=== PATIENT | male | born 1955 | race Caucasian/White ===

== ENCOUNTER 2021-02-11 09:55 | Emergency (ER) | payer MEDICARE, OTHER ==
--- NOTE | 2021-02-11 10:14 | ED Physician Documentation ---
PD HPI LOWER EXT INJURY - Stated complaint Stated Complaint: L FOOT BRUISING - Chief complaint Chief Complaint: Trauma Ext - History obtained from History obtained from: Patient - History of Present Illness PD HPI LOW EXT INJURY LOCATION: Left, Ankle Type of injury: Twist (he felt a pop feeling in ankle when he twisted foot in bed a week ago, and was some sore for day or two. Now better. But now having couple days of swelling and bruising medially below ankle. No other bruising/bleeding noted.). No: Fall Where injury occurred: Home Timing - onset: How many weeks ago (1) Timing - details: Abrupt onset (for the feeling of mild pain in ankle a week ago, but gradual onset dark purple bruising the past couple days.) Worsened by: Palpating Associated symptoms: Swelling, Discolored (purple to green bruising medial ankle.). No: Weakness, Numbness Contributing factors: No: Anticoagulated Similar symptoms before: Has not had sx before Recently seen: Not recently seen Review of Systems Constitutional: denies: Fever, Chills Nose: denies: Rhinorrhea / runny nose, Congestion Throat: denies: Sore throat Respiratory: denies: Cough Skin: denies: Rash, Lesions, Abrasion (s) Neurologic: denies: Focal weakness, Numbness PD PAST MEDICAL HISTORY - Past Medical History Cardiovascular: Hypertension, High cholesterol - Past Surgical History Past Surgical History: Yes Ortho: Spine surgery - Present Medications Home Medications: Ambulatory Orders Medication Instructions Recorded Confirmed Carvedilol 12.5 mg PO BID 06/20/16 02/11/21 Flecainide [Tambocar] 100 mg PO BID 06/20/16 02/11/21 Losartan [Cozaar] 50 mg PO DAILY 06/20/16 02/11/21 Rabeprazole Sodium 20 mg PO DAILY 06/20/16 02/11/21 Rosuvastatin Calcium 10 mg PO DAILY 06/20/16 02/11/21 Amlodipine Besylate [Norvasc] 10 mg PO DAILY 02/11/21 02/11/21 - Allergies Allergies/Adverse Reactions: Allergies Allergy/AdvReac Type Severity Reaction Status Date / Time No Known Drug Allergies Allergy Verified 02/11/21 10:02 - Social History Does the pt smoke?: No Smoking Status: Never smoker PD ED PE NORMAL - Vitals Vital signs reviewed: Yes - General General: Alert and oriented X 3, No acute distress, Well developed/nourished - Derm Derm: Normal color, Warm and dry - Extremities Extremities: Other (left ankle with purple to green bruising noted medial inframalleolar area with minimal local tenderness and mild to moderate swelling. Achilles not tender. Laterally not tender. Mild pain with eversion stress. No laxity. ) - Neuro Neuro: No motor deficit, No sensory deficit Results - Vitals Vitals: Vital Signs - 24 hr 02/11/21 02/11/21 10:03 11:30 Temperature 36.3 C L Heart Rate 59 L 51 L Respiratory 16 16 Rate Blood Pressure 152/78 H 114/82 H O2 Saturation 99 97 Oxygen O2 Source Room air - Rads (name of study) left ankle Radiology: Prelim report reviewed (xray showing some hypodensity of bone distal fibula, benign appearing, c/w sclerosing fibroma per Rad. No focal bone lesion per se.), See rad report PD MEDICAL DECISION MAKING - ED course Complexity details: reviewed results (xray showing some hypodensity of bone distal fibula, benign appearing, c/w sclerosing fibroma per Rad. No focal bone lesion per se. ), considered differential (Has bruising show lower medial ankle without really pain. He had felt a strain feeling when moved ankle in bed almost a week ago, with slight pain on walking, but now better. Presume deeper injury, small blood vessel hematoma which is now leaching to surface inferiorly (gravity-choudhury). ), d/w patient Departure - Departure Disposition: 01 Home, Self Care Clinical Impression: Bruising Ankle strain Qualifiers: Encounter type: initial encounter Laterality: left Qualified Code(s): S96.912A - Strain of unspecified muscle and tendon at ankle and foot level, left foot, initial encounter Condition: Stable Record reviewed to determine appropriate education?: Yes Instructions: ED Sprain Ankle Follow-Up: Mracus Trammell MD [Primary Care Provider] - Comments: Presume there was some mild injury within the ankle joint of the ligaments or muscle and you had a small bruising or hematoma down deep. This is now leaching to the surface and appearing in the current location as a gravity effect of the blood inside. Typically there is no ongoing bleeding but just the residual coming to the surface. The blood in the tissue can cause swelling so you can elevate and use an Dallin wrap if needed for the swelling. Recheck if you develop any pain swelling or tenderness up in the calf area. The radiologist does make comment about some decreased mineralization or bone density on the fibula but felt that it looked benign. No sign of a bone lesion per se. I would anticipate improvement in the swelling over the next several days to week. The discoloration may actually increase some if more blood comes to the surface but should dissipate and fade over a week or 2. Recheck if not improved well over the next week. Discharge Date/Time: 02/11/21 11:51
--- NOTE | 2021-02-11 10:52 | XRAY Report ---
PROCEDURE: Ankle 3 View LT INDICATIONS: ankle bruising/swelling TECHNIQUE: 3 views of the ankle were acquired. COMPARISON: None FINDINGS: Bones: No fractures or dislocations. Ankle mortise is normally aligned. There is suggestion of a mi xed lytic and sclerotic process involving anterior cortex of distal fibular shaft without adjacent pe riosteal reaction. Soft tissues: No tibiotalar joint effusion. Achilles tendon appears normal. Significant soft tissu e swelling over anterior and medial aspect of ankle joint is seen. IMPRESSION: Significant ankle soft tissue swelling. No acute ankle fracture or dislocation. Intact a nkle mortise. 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 This is likely an incidental finding. Reviewed by: Bhavik Chand MD on 02/11/2021 10:51 AM PDT Approved by: Bhavik Chand MD on 02/11/2021 10:51 AM PDT Station ID: [id number]
[2021-02-11 11:30] VITALS: BP 114/82
== END 2021-02-11 11:51 | disposition home or self-care (01) ==
LOC: ED 09:55
DX: S90.02XA Contusion of left ankle, initial encounter (principal); S96.912A Strain of unspecified muscle and tendon at ankle and foot level, left foot, initial encounter; X50.1XXA Overexertion from prolonged static or awkward postures, initial encounter; Y92.003 Bedroom of unspecified non-institutional (private) residence as the place of occurrence of the external cause; I10 Essential (primary) hypertension
CPT/HCPCS: 99282; 99283

== ENCOUNTER 2021-11-29 15:04 | Emergency (ER) | payer MEDICARE, OTHER ==
--- NOTE | 2021-11-29 15:44 | ED Physician Documentation ---
History of Present Illness - Stated complaint Stated Complaint: HIGH BLOOD PRESSURE - Chief complaint Chief Complaint: Cardiac - History obtained from History obtained from: Patient - Additonal information Additional information: 66-year-old gentleman with history of paroxysmal atrial fibrillation and hypertension, current hypertension regimen is: Carvedilol 25 mg p.o. twice daily, Cozaar 50 mg once a day He also takes flecainide 100 mg twice a day He stopped amlodipine in September because of some gum issues. He noted his blood pressure over last 24 hours has been higher than normal for him up to 170/100 at home or so and he has barely perceptible chest pressure with this and a mild headache. Review of Systems Constitutional: denies: Fever, Chills Cardiac: denies: Palpitations Respiratory: denies: Dyspnea, Cough PD PAST MEDICAL HISTORY - Past Medical History Past Medical History: Yes Cardiovascular: Hypertension, High cholesterol, Atrial fibrillation Respiratory: None Neuro: None Endocrine/Autoimmune: None GI: GERD : None Psych: None Musculoskeletal: None Derm: None - Past Surgical History Past Surgical History: Yes Ortho: Spine surgery - Present Medications Home Medications: Ambulatory Orders Medication Instructions Recorded Confirmed Carvedilol 12.5 mg PO BID 06/20/16 02/11/21 Flecainide [Tambocar] 100 mg PO BID 06/20/16 02/11/21 Losartan [Cozaar] 50 mg PO DAILY 06/20/16 02/11/21 Rabeprazole Sodium 20 mg PO DAILY 06/20/16 02/11/21 Rosuvastatin Calcium 10 mg PO DAILY 06/20/16 02/11/21 Amlodipine Besylate [Norvasc] 10 mg PO DAILY 02/11/21 02/11/21 - Allergies Allergies/Adverse Reactions: Allergies Allergy/AdvReac Type Severity Reaction Status Date / Time No Known Drug Allergies Allergy Verified 11/29/21 15:11 - Social History Does the pt smoke?: No Smoking Status: Never smoker Does the pt drink ETOH?: Yes Does the pt have substance abuse?: No - Immunizations Immunizations are current?: Yes PD ED PE NORMAL - Vitals Vital signs reviewed: Yes - General General: Alert and oriented X 3, No acute distress - HEENT HEENT: PERRL, EOMI - Neck Neck: Supple, no meningeal sign, No bony TTP - Cardiac Cardiac: RRR, No murmur - Respiratory Respiratory: No respiratory distress, Clear bilaterally - Abdomen Abdomen: Normal bowel sounds, Soft, Non tender - Back Back: No CVA TTP, No spinal TTP - Derm Derm: Normal color, Warm and dry - Extremities Extremities: No edema, No calf tenderness / cord - Neuro Neuro: Alert and oriented X 3, Normal speech Results - Vitals Vitals: Vital Signs - 24 hr 11/29/21 11/29/21 11/29/21 15:07 15:32 15:52 Temperature 35.9 C L Heart Rate 53 L 49 L Respiratory 16 13 Rate Blood Pressure 201/113 H 171/104 H 158/98 H O2 Saturation 98 96 11/29/21 16:15 Temperature Heart Rate 49 L Respiratory 17 Rate Blood Pressure 149/92 H O2 Saturation 95 Oxygen O2 Source Room air - EKG (time done) 1515 Rate: Rate (enter#) (47) Rhythm: Sinus bradycardia [place]: Normal Intervals: Other (ivcd) QRS: Normal Ischemia: Normal ST segments PD MEDICAL DECISION MAKING - ED course ED course: This is a relatively asymptomatic gentleman with elevated blood pressures. During observation in the emergency department his blood pressure trended down to 149/80 or so. His EKG is nonischemic. He declined blood work as he just had a "full panel" done a within the week which was negative per him. Departure - Departure Disposition: 01 Home, Self Care Clinical Impression: Elevated blood pressure reading Condition: Good Record reviewed to determine appropriate education?: Yes Instructions: ED HTN Established Comments: Your BP trended down while you are here without any specific therapy, still slightly high on discharge, but can be watched at home. If you continue to have routine numbers when feeling well above 150/80 you could double your losartan to 100 mg a day. Return for new or worsening symptoms, especially severe chest pain, strokelike symptoms. Follow-up with your primary care physician in a week or 2 for reevaluation. Discharge Date/Time: 11/29/21 16:26
[2021-11-29 16:16] VITALS: BP 149/92
== END 2021-11-29 16:26 | disposition home or self-care (01) ==
LOC: ED 15:04
DX: I10 Essential (primary) hypertension (principal); I48.91 Unspecified atrial fibrillation
CPT/HCPCS: 80053; 83690; 84484; 85025; 93005; 99284

== ENCOUNTER 2021-12-20 19:46 | Emergency (ER) | payer MEDICARE, OTHER ==
--- OUTSIDE RECORDS SUMMARY | 2021-12-20 20:16 | EXTERNAL MEDICAL SUMMARY RPT | Continuity of Care Document ---
:1955 Author Organization [facility] Address [address] [place] [address] Phone Care Team Providers Name Role Phone Judi Unavailable Unavailable Trammell Unavailable Unavailable Allergies No information. Encounters No information. Medications date description facility 20211201 carvedilol 12.5 MG Oral Tablet [facility] 20211201 carvedilol 12.5 MG Oral Tablet [facility] Problems Procedures date description facility [facility] Results No information. Vital Signs date measurement value source 20211201 weight_standard 106.14 lb 20211201 weight_metric 48.14 kg 20211201 temperature_standard 97.1 F 20211201 temperature_metric 36.17 C 20211201 respiration_rate 18 /min 20211201 height_standard 70 in 20211201 height_metric 177.8 cm 20211201 heart_rate 54 /min 20211201 BP_systolic 193 mm[Hg] 20211201 BP_diastolic 89 mm[Hg] 20211201 BMI 33.5 kg/m2 20211201 weight_standard 106.14 lb 20211201 weight_metric 48.14 kg 20211201 temperature_standard 97.1 F 20211201 temperature_metric 36.17 C 20211201 respiration_rate 18 /min 20211201 height_standard 70 in 20211201 height_metric 177.8 cm 20211201 heart_rate 62 /min 20211201 BP_systolic 182 mm[Hg] 20211201 BP_diastolic 94 mm[Hg] 20211201 BMI 33.5 kg/m2
[2021-12-20 20:18] LABS: BILIRUBIN,URINE NEGATIVE (NEGATIVE); GLUCOSE, URINE (UA) NEGATIVE (NEGATIVE); KETONES,URINE (UA) TRACE mg/dL (NEGATIVE); LEUKOCYTE ESTERASE, URINE NEGATIVE (NEGATIVE); NITRITE,URINE NEGATIVE (NEGATIVE); OCCULT BLOOD,URINE NEGATIVE (NEGATIVE); PH,URINE 5.5 PH (5.0-7.5); PROTEIN,URINE NEGATIVE (NEGATIVE); UROBILINOGEN,URINE 0.2 (NORMAL) E.U./dL (NORMAL)
[2021-12-20 20:20] LABS: CLARITY,URINE CLEAR (CLEAR)
--- NOTE | 2021-12-20 21:17 | ED Physician Documentation ---
PD HPI MALE - Stated complaint Stated Complaint: MALE - Chief complaint Chief Complaint: Abd Pain - History obtained from History obtained from: Patient - History of Present Illness Timing - onset: Today Timing - duration: Hours Timing - details: Abrupt onset, Still present Associated symptoms: Urinary frequency, Other (small amount of urine) Similar symptoms before: Has not had sx before Recently seen: Not recently seen - Additional information Additional information: 66-year-old male has developed some urinary urgency and frequency with small amounts he has not had dysuria specifically. He felt that he had some fever today without other symptoms. He has not had nausea vomiting diarrhea cough congestion shortness of breath or ear nose and throat complaints. He has been immunized and boosted for Covid he has not had Covid previously Review of Systems Constitutional: reports: Fever Eyes: denies: Decreased vision Ears: denies: Ear pain Nose: denies: Congestion Throat: denies: Sore throat Cardiac: denies: Chest pain / pressure, Palpitations Respiratory: denies: Dyspnea GI: denies: Abdominal Pain, Nausea, Vomiting, Constipation, Diarrhea : reports: Frequency. denies: Dysuria PD PAST MEDICAL HISTORY - Past Medical History Past Medical History: Yes Cardiovascular: Hypertension, High cholesterol, Atrial fibrillation Respiratory: None Neuro: None Endocrine/Autoimmune: None GI: GERD : None Psych: None Musculoskeletal: None Derm: None - Past Surgical History Past Surgical History: Yes Ortho: Spine surgery - Present Medications Home Medications: Ambulatory Orders Medication Instructions Recorded Confirmed Carvedilol 12.5 mg PO BID 06/20/16 12/21/21 Flecainide [Tambocar] 100 mg PO BID 06/20/16 12/21/21 Losartan [Cozaar] 50 mg PO DAILY 06/20/16 12/21/21 Rabeprazole Sodium 20 mg PO DAILY 06/20/16 12/21/21 Rosuvastatin Calcium 10 mg PO DAILY 06/20/16 12/21/21 Apixaban [Eliquis] 5 mg PO DAILY 12/21/21 12/21/21 - Allergies Allergies/Adverse Reactions: Allergies Allergy/AdvReac Type Severity Reaction Status Date / Time No Known Drug Allergies Allergy Verified 12/20/21 20:02 - Social History Does the pt smoke?: No Smoking Status: Never smoker Does the pt drink ETOH?: Yes Does the pt have substance abuse?: No - Immunizations Immunizations are current?: Yes - POLST Patient has POLST: No PD ED PE NORMAL - Vitals Vital signs reviewed: Yes (Hypertensive) - General General: Alert and oriented X 3, No acute distress, Well developed/nourished - HEENT HEENT: Atraumatic, PERRL, EOMI - Neck Neck: Supple, no meningeal sign, No bony TTP - Cardiac Cardiac: RRR, No murmur - Respiratory Respiratory: No respiratory distress, Clear bilaterally - Abdomen Abdomen: Normal bowel sounds, Soft, Non tender, Non distended, No organomegaly - Back Back: No CVA TTP, No spinal TTP - Derm Derm: Normal color, Warm and dry, No rash - Extremities Extremities: No deformity, No edema - Neuro Neuro: Alert and oriented X 3, tag marker 2-12 intact, No motor deficit, No sensory deficit, Normal speech Eye Opening: Spontaneous Motor: Obeys Commands Verbal: Oriented GCS Score: 15 - Psych Psych: Normal mood, Normal affect Results - Vitals Vitals: Vital Signs - 24 hr 12/20/21 12/20/21 19:57 21:31 Temperature 38.3 C H Heart Rate 92 78 Respiratory 16 19 Rate Blood Pressure 156/98 H 160/96 H O2 Saturation 99 99 Oxygen O2 Source Room air - Labs Labs: Laboratory Tests 12/20/21 20:15 Urine Color YELLOW Urine Clarity CLEAR Urine pH 5.5 Ur Specific [place] 1.025 Urine Protein NEGATIVE Urine Glucose (UA) NEGATIVE Urine Ketones TRACE Urine Occult Blood NEGATIVE Urine Nitrite NEGATIVE Urine Bilirubin NEGATIVE Urine Urobilinogen 0.2 (NORMAL) Ur Leukocyte Esterase NEGATIVE Ur Microscopic Review NOT INDICATED Procedures - IVC sono (time) 2019 Bedside IVC sono: IVC measures (cm) (1.21), Dehydration (est 1 liter deficit) PD MEDICAL DECISION MAKING - ED course Complexity details: reviewed results, re-evaluated patient, considered differential, d/w patient ED course: 66-year-old male has developed some urinary frequency and small amounts of urine he does not have any pain does not feel like he has a full bladder and he has had a fever today. He has not had URI symptoms he is vaccinated and boosted we checked his urine today found it was concentrated but without evidence of infe ction. I checked the patient's inferior vena cava found he was mildly dehydrated. He is able to hydrate orally I have encouraged patient to take some Tylenol and hydrate and we attempted to do a nasal swab for COVID here and this was a send out test which inadvertently was mislabeled and is not available. The patient does have home testing. I have encouraged patient to test at home prior to his departure and quarantine accordingly. Departure - Departure Disposition: Home, Self Care Clinical Impression: Dehydration Fever Qualifiers: Fever type: unspecified Qualified Code(s): R50.9 - Fever, unspecified Condition: Stable Instructions: ED Dehydration, ED Viral Syndrome Follow-Up: RADHAMES KUMAR MD [Primary Care Provider] - Comments: See, today we did not find any abnormality to your urine it was a little concentrated and when we checked your inferior vena cava you are a little bit dehydrated. You have had a fever today and we find no other specific concerning findings on physical examination. Since you are vaccinated and boosted it is possible to have a Covid infection with very little symptoms. I suspect the fever may have been the reason for the dehydration and the recommendation there is to take some Tylenol to reduce the fever and drink extra fluids. The Covid test is pending the recommendation is to take at home test and quarantine at home. Retest in 1 week if you are positive. Discharge Date/Time: 12/20/21 21:35
[2021-12-20 21:32] VITALS: BP 160/96
== END 2021-12-20 21:35 | disposition home or self-care (01) ==
LOC: ED 19:46
DX: E86.0 Dehydration (principal); R50.9 Fever, unspecified
CPT/HCPCS: 51798; 81001; 81003; 87086; 99282; 99283

== ENCOUNTER 2022-06-09 07:38 | Emergency (ER) | payer MEDICARE, OTHER ==
--- NOTE | 2022-06-09 07:54 | ED Physician Documentation ---
PD HPI CHEST PAIN - Stated complaint Stated Complaint: LIGHTHEADED/WEAK - Chief complaint Chief Complaint: Cardiac - History obtained from History obtained from: Patient - History of Present Illness Timing - onset: How many hours ago (3) Timing - onset during: Sleep, Rest Timing - duration: Hours (3) Timing - details: Abrupt onset, Still present Quality: Tightness. No: Sharp, Tearing, Pain Location: Substernal Improved by: No: Rest Worsened by: No: Inspiration Associated symptoms: Palpitations. No: Shortness of air, Nausea, Vomiting, Feeling faint / dizzy Similar symptoms before: Diagnosis (has had shorter episodes due to atrial fib, though had an episdoe lasting about 9 hours several days ago, resolved spontaneously.) Recently seen: Clinic (seen by Cardiology last week and had flecanide changed to Sotalol (due to age and concern for renal function). Patient on it for 1 month and then had dose increased 2 days ago to 2 in AM, 1 in eveing from 1 BID.) Review of Systems Constitutional: denies: Fever, Chills Nose: denies: Rhinorrhea / runny nose, Congestion Throat: denies: Sore throat Cardiac: reports: Palpitations. denies: Chest pain / pressure, Pedal edema Respiratory: denies: Cough Musculoskeletal: denies: Neck pain, Back pain Neurologic: denies: Generalized weakness, Near syncope, Syncope, Altered mental status Immunocompromised: denies: Immunocompromised PD PAST MEDICAL HISTORY - Past Medical History Cardiovascular: Hypertension, High cholesterol, Atrial fibrillation Respiratory: None Neuro: None Endocrine/Autoimmune: None GI: GERD : None Psych: None Musculoskeletal: None Derm: None - Past Surgical History Past Surgical History: Yes Ortho: Spine surgery - Present Medications Home Medications: Ambulatory Orders Medication Instructions Recorded Confirmed Carvedilol 6.25 mg PO BID 06/20/16 06/09/22 Losartan [Cozaar] 50 mg PO DAILY 06/20/16 06/09/22 Rabeprazole Sodium 20 mg PO DAILY 06/20/16 06/09/22 Rosuvastatin Calcium 40 mg PO DAILY 06/20/16 06/09/22 Apixaban [Eliquis] 5 mg PO BID 12/21/21 06/09/22 Sotalol [Betapace] 80 mg PO DAILY 06/09/22 06/09/22 - Allergies Allergies/Adverse Reactions: Allergies Allergy/AdvReac Type Severity Reaction Status Date / Time No Known Drug Allergies Allergy Verified 06/09/22 07:48 - Living Situation Living Situation: reports: With spouse/s.o. Living Arrangement: reports: At home - Social History Does the pt smoke?: No Smoking Status: Never smoker Does the pt drink ETOH?: Yes ETOH Use: Wine (1-3 glasses nightly) Does the pt have substance abuse?: No - Immunizations Immunizations are current?: Yes - POLST Patient has POLST: No PD ED PE NORMAL - Vitals Vital signs reviewed: Yes - General General: Alert and oriented X 3, No acute distress, Well developed/nourished - HEENT HEENT: Pharynx benign - Neck Neck: Supple, no meningeal sign, No adenopathy - Cardiac Cardiac: No murmur. No: RRR (irregular and rate about 135-150.) - Respiratory Respiratory: Clear bilaterally - Abdomen Abdomen: Soft, Non tender - Derm Derm: Normal color, Warm and dry - Extremities Extremities: Normal ROM s pain, No edema, No calf tenderness / cord - Neuro Neuro: Alert and oriented X 3, No motor deficit, Normal speech Eye Opening: Spontaneous Motor: Obeys Commands Verbal: Oriented GCS Score: 15 - Psych Psych: Normal mood, Normal affect Results - Vitals Vitals: Vital Signs - 24 hr 06/09/22 06/09/22 06/09/22 07:48 08:20 08:28 Temperature 37.2 C Heart Rate 138 H 129 H 125 H Respiratory 19 13 15 Rate Blood Pressure 151/91 H 117/98 H 108/91 H O2 Saturation 99 96 96 06/09/22 06/09/22 06/09/22 08:32 08:37 08:52 Temperature Heart Rate 118 H 123 H 120 H Respiratory 18 18 14 Rate Blood Pressure 99/79 109/76 98/78 O2 Saturation 99 96 97 06/09/22 06/09/22 06/09/22 09:00 09:30 10:00 Temperature Heart Rate 117 H 112 H 130 H Respiratory 16 13 16 Rate Blood Pressure 117/84 H 116/82 H 113/88 H O2 Saturation 96 97 97 06/09/22 06/09/22 06/09/22 10:30 10:50 11:00 Temperature Heart Rate 121 H 120 H 59 L Respiratory 12 16 15 Rate Blood Pressure 124/103 H 114/68 110/76 O2 Saturation 98 97 98 06/09/22 06/09/22 06/09/22 11:20 11:30 11:59 Temperature 36.6 C 36.6 C Heart Rate 89 53 L 52 L Respiratory 21 16 16 Rate Blood Pressure 126/80 128/60 O2 Saturation 99 98 Oxygen O2 Source Room air - EKG (time done) 07:49 Rate: Rate (enter#) (126) Rhythm: Atrial fibrillation QRS: Normal Ischemia: Normal ST segments. No: ST elevation c/w ischemia, ST depression 10:59 Rate: Rate (enter#) (58) Rhythm: NSR Page: Normal Intervals: Normal NV QRS: Normal Ischemia: Normal ST segments. No: ST elevation c/w ischemia, ST depression - Labs Labs: Laboratory Tests 06/09/22 06/09/22 06/09/22 07:59 07:59 07:59 WBC 7.6 RBC 5.53 Hgb 16.3 Hct 47.2 MCV 85.4 MCH 29.5 MCHC 34.5 RDW 13.2 Plt Count 212 MPV 9.9 Neut # (Auto) 4.9 Lymph # (Auto) 1.8 [place] # (Auto) 0.6 Eos # (Auto) 0.2 Baso # (Auto) 0.1 Absolute Nucleated RBC 0.00 Nucleated RBC % 0.0 Sodium 142 Potassium 3.8 Chloride 106 Carbon Dioxide 25 Anion Gap 11.0 BUN 15 Creatinine 0.8 Estimated GFR (MDRD) 97 Glucose 112 H Calcium 9.7 Magnesium 2.3 Total Bilirubin 1.0 AST 28 ALT 41 Alkaline Phosphatase 42 B-Natriuretic Peptide 63 Total Protein 7.7 Albumin 4.3 Globulin 3.4 Albumin/Globulin Ratio 1.3 Lipase 33 TSH 06/09/22 07:59 WBC RBC Hgb Hct MCV MCH MCHC RDW Plt Count MPV Neut # (Auto) Lymph # (Auto) [place] # (Auto) Eos # (Auto) Baso # (Auto) Absolute Nucleated RBC Nucleated RBC % Sodium Potassium Chloride Carbon Dioxide Anion Gap BUN Creatinine Estimated GFR (MDRD) Glucose Calcium Magnesium Total Bilirubin AST ALT Alkaline Phosphatase B-Natriuretic Peptide Total Protein Albumin Globulin Albumin/Globulin Ratio Lipase TSH 3.00 Procedures - Cardioversion 1 Indication: Tachyarrhythmia Risks, benefits, alternatives explained to: Pt, Other (spouse present as well) CS via: Pads, AP approach Sync: Biphasic, 100j Post cardioversion rhythm: NSR Complications: Other (transient snoring (history of CPAP use) when sedated, improved with brief jaw thrust and towel behind shoulders. Sats good.) Performed by: ED MD [facility]ON[facility] MEDICAL DECISION MAKING - ED course Complexity details: reviewed results, re-evaluated patient (HR slowing only to about 110-130 after doses metoprolol. He is still feeling the fluttering feeling in chest. Discussed option of cardioversion with him and his . Theey are agreeable.), considered differential, d/w patient - Critical Care Time(min): 30 Time Includes: Direct patient care, Reassess patient, Document care, Coordinate care Data interpretation: Labs, Pulse ox Procedures excluded from critical care time: EKG Departure - Departure Disposition: 01 Home, Self Care Clinical Impression: Paroxysmal atrial fibrillation with RVR Condition: Stable Record reviewed to determine appropriate education?: Yes Instructions: ED Cardioversion Electrical Follow-Up: RADHAMES KUMAR MD [Primary Care Provider] - Juan Francisco Eden MD [Physician No Access] - Comments: Stay well-hydrated today. Continue your regular usual medicines. Avoid alcohol the next week or so. Contact your cardiology office to update later this week. I presume they will want to keep you at the recently increased dose of sotalol and not change it at this time but they may want to increase it more if you have further episodes this week. Return as needed. Discharge Date/Time: 06/09/22 12:00
[2022-06-09] MEDS ORDERED: SODIUM CHLORIDE 0.9% 1,000 ML IV STA (08:20)
[2022-06-09] MEDS ORDERED: METOPROLOL 5 MG/5 ML VIAL IVP STA ×2 (08:21→09:38)
[2022-06-09 08:27] LABS: BASOPHILS # (AUTO) 0.1 10^3/uL (0.0-0.1); BASOPHILS % (AUTO) 0.7 %; EOSINOPHILS # (AUTO) 0.2 10^3/uL (0.0-0.7); EOSINOPHILS % (AUTO) 2.1 %; HCT - HEMATOCRIT 47.2 % (42.0-52.0); HGB - HEMOGLOBIN 16.3 g/dL (14.0-18.0); LYMPHOCYTES # (AUTO) 1.8 10^3/uL (1.5-3.5); LYMPHOCYTES % (AUTO) 23.9 %; MEAN CORPUSCULAR HEMOGLOBIN 29.5 pg (27.0-31.0); MEAN CORPUSCULAR HGB CONC 34.5 g/dL (32.0-36.0); MEAN CORPUSCULAR VOLUME 85.4 fL (80.0-94.0); MEAN PLATELET VOLUME 9.9 fL (7.4-11.4); MONOCYTES # (AUTO) 0.6 10^3/uL (0.0-1.0); MONOCYTES % (AUTO) 8.3 %; NEUTROPHILS # (AUTO) 4.9 10^3/uL (1.5-6.6); NEUTROPHILS % (AUTO) 64.5 %; PLT - PLATELET COUNT 212 10^3/uL (130-450); RED BLOOD COUNT 5.53 10^6/uL (4.70-6.10); RED CELL DISTRIBUTION WIDTH 13.2 % (12.0-15.0); WHITE BLOOD COUNT 7.6 x10^3/uL (4.8-10.8)
--- NOTE | 2022-06-09 08:51 | XRAY Report ---
PROCEDURE: Chest 1 View X-Ray INDICATIONS: Chest Pain TECHNIQUE: One view of the chest was acquired. COMPARISON: FINDINGS: Surgical changes and devices: None. Lungs and pleura: No pleural effusions or pneumothorax. Subtle oval densities noted over the bilater al lower lung zones compatible with nipple shadows. Lungs are otherwise clear. Mediastinum: Mediastinal contours appear normal. Heart size is normal. Bones and chest wall: No suspicious bony lesions. Overlying soft tissues appear unremarkable. IMPRESSION: Chest without acute cardiopulmonary abnormalities or focal airspace disease. Reviewed by: Yomi Xiong MD on 06/09/2022 8:49 AM PDT Approved by: Yomi Xiong MD on 06/09/2022 8:49 AM PDT Station ID: [id number]
[2022-06-09 09:39] LABS: ALBUMIN 4.3 g/dL (3.2-5.5); ALBUMIN/GLOBULIN RATIO 1.3 (1.0-2.2); CALCIUM 9.7 mg/dL (8.5-10.3); CREATININE 0.8 mg/dL (0.6-1.2); MAGNESIUM 2.3 mg/dL (1.7-2.8); POTASSIUM 3.8 mmol/L (3.5-5.0); TOTAL PROTEIN 7.7 g/dL (6.7-8.2)
[2022-06-09] MEDS ORDERED: PROPOFOL 200 MG/20 ML VIAL IVP STA (10:28)
[2022-06-09 12:01] VITALS: BP 128/60
== END 2022-06-09 12:00 | disposition home or self-care (01) ==
LOC: ED 07:38
DX: I48.0 Paroxysmal atrial fibrillation (principal); I10 Essential (primary) hypertension; Z79.01 Long term (current) use of anticoagulants
CPT/HCPCS: 36415; 80053; 83690; 83735; 83880; 84443; 85025; 92960; 93005; 94770; 99152; 99291

== ENCOUNTER 2022-06-16 21:23 | Emergency (ER) | payer MEDICARE, OTHER ==
[2022-06-16 21:38] VITALS: BP 130/91
== END 2022-06-16 21:45 | disposition left against medical advice (07) ==
LOC: ED 21:23
DX: Z53.21 Procedure and treatment not carried out due to patient leaving prior to being seen by health care provider (principal)

== ENCOUNTER 2022-08-31 17:30 | Outpatient (CLI) | payer MEDICARE, OTHER | END 2022-08-31 23:59 | disposition critical access hospital (66) | LOC: EMS 17:30 | DX: I10 Essential (primary) hypertension (principal) | CPT/HCPCS: A0425; A0429 ==

== ENCOUNTER 2022-08-31 17:42 | Emergency (ER) | payer MEDICARE, OTHER ==
[2022-08-31 17:52] VITALS: BP 167/88
[2022-08-31 18:29] LABS: BASOPHILS # (AUTO) 0.1 10^3/uL (0.0-0.1); BASOPHILS % (AUTO) 0.8 %; EOSINOPHILS # (AUTO) 0.3 10^3/uL (0.0-0.7); EOSINOPHILS % (AUTO) 3.4 %; HCT - HEMATOCRIT 47.9 % (42.0-52.0); HGB - HEMOGLOBIN 15.8 g/dL (14.0-18.0); LYMPHOCYTES # (AUTO) 2.1 10^3/uL (1.5-3.5); LYMPHOCYTES % (AUTO) 25.2 %; MEAN CORPUSCULAR HEMOGLOBIN 28.3 pg (27.0-31.0); MEAN CORPUSCULAR VOLUME 85.8 fL (80.0-94.0); MEAN PLATELET VOLUME 9.6 fL (7.4-11.4); MONOCYTES # (AUTO) 0.6 10^3/uL (0.0-1.0); MONOCYTES % (AUTO) 6.9 %; NEUTROPHILS # (AUTO) 5.3 10^3/uL (1.5-6.6); NEUTROPHILS % (AUTO) 63.3 %; PLT - PLATELET COUNT 209 10^3/uL (130-450); RED BLOOD COUNT 5.58 10^6/uL (4.70-6.10); RED CELL DISTRIBUTION WIDTH 13.3 % (12.0-15.0); WHITE BLOOD COUNT 8.4 x10^3/uL (4.8-10.8)
[2022-08-31 18:32] LABS: ALBUMIN 4.2 g/dL (3.2-5.5); ALBUMIN/GLOBULIN RATIO 1.3 (1.0-2.2); BILIRUBIN,TOTAL 0.9 mg/dL (0.2-1.0); CALCIUM 9.8 mg/dL (8.5-10.3); CREATININE 0.7 mg/dL (0.6-1.2); POTASSIUM 3.7 mmol/L (3.5-5.0); TOTAL PROTEIN 7.4 g/dL (6.7-8.2)
--- NOTE | 2022-08-31 18:55 | ED Physician Documentation ---
History of Present Illness - Stated complaint Stated Complaint: HTN - Chief complaint Chief Complaint: Cardiac - History obtained from History obtained from: Patient - Additonal information Additional information: The patient comes to the emergency department chief complaint of an episode of "feeling funny" and finding his blood pressure to be 200s over 100s. The patient states he really cannot describe what he means by "feeling funny" any more than to say he just felt unwell. He denies chest pain, shortness of breath, or lightheadedness. No diaphoresis or nausea. He is currently taking amlodipine 5 mg each morning in addition to his other medications, and will after this week be increasing his dose to 10 mg. He did take an extra dose of his amlodipine this evening after finding his blood pressure to be high, and he now states that he feels as though his blood pressures come down. Blood pressure measured on arrival here was found to be 150s over 70s. Review of Systems Ten Systems: 10 systems reviewed and negative Constitutional: reports: Reviewed and negative Eyes: reports: Reviewed and negative Ears: reports: Reviewed and negative Nose: reports: Reviewed and negative Throat: reports: Reviewed and negative Cardiac: reports: Reviewed and negative Respiratory: reports: Reviewed and negative GI: reports: Reviewed and negative : reports: Reviewed and negative Skin: reports: Reviewed and negative Musculoskeletal: reports: Reviewed and negative Neurologic: reports: Reviewed and negative Psychiatric: reports: Reviewed and negative Endocrine: reports: Reviewed and negative Immunocompromised: reports: Reviewed and negative PD PAST MEDICAL HISTORY - Past Medical History Past Medical History: Yes Cardiovascular: Hypertension, High cholesterol, Atrial fibrillation Respiratory: None Neuro: None Endocrine/Autoimmune: None GI: GERD : None Psych: None Musculoskeletal: None Derm: None - Past Surgical History Past Surgical History: Yes Ortho: Spine surgery - Present Medications Home Medications: Ambulatory Orders Medication Instructions Recorded Confirmed Carvedilol 6.25 mg PO BID 06/20/16 06/09/22 Losartan [Cozaar] 50 mg PO DAILY 06/20/16 06/09/22 Rabeprazole Sodium 20 mg PO DAILY 06/20/16 06/09/22 Rosuvastatin Calcium 40 mg PO DAILY 06/20/16 06/09/22 Apixaban [Eliquis] 5 mg PO BID 12/21/21 06/09/22 Sotalol [Betapace] 80 mg PO DAILY 06/09/22 06/09/22 - Allergies Allergies/Adverse Reactions: Allergies Allergy/AdvReac Type Severity Reaction Status Date / Time No Known Drug Allergies Allergy Verified 08/31/22 17:52 - Social History Does the pt smoke?: No Smoking Status: Never smoker Does the pt drink ETOH?: Yes Does the pt have substance abuse?: No - Immunizations Immunizations are current?: Yes - POLST Patient has POLST: No PD ED PE NORMAL - Vitals Vital signs reviewed: Yes - General General: Alert and oriented X 3, No acute distress, Well developed/nourished - HEENT HEENT: Atraumatic, PERRL, EOMI, Moist mucous membranes - Neck Neck: Supple, no meningeal sign - Cardiac Cardiac: RRR, No murmur, Strong equal pulses - Respiratory Respiratory: No respiratory distress, Clear bilaterally - Abdomen Abdomen: Soft, Non tender, Non distended - Derm Derm: Normal color, Warm and dry, No rash - Extremities Extremities: No deformity, No edema - Neuro Neuro: Alert and oriented X 3 - Psych Psych: Normal mood, Normal affect Results - Vitals Vitals: Vital Signs - 24 hr 08/31/22 08/31/22 17:46 17:58 Temperature 35.9 C L 35.9 C L Heart Rate 58 L 58 L Respiratory 16 16 Rate Blood Pressure 167/88 H 167/88 H O2 Saturation 99 99 Oxygen O2 Source Room air - Labs Labs: Laboratory Tests 08/31/22 08/31/22 08/31/22 18:12 18:12 18:12 WBC 8.4 RBC 5.58 Hgb 15.8 Hct 47.9 MCV 85.8 MCH 28.3 MCHC 33.0 RDW 13.3 Plt Count 209 MPV 9.6 Neut # (Auto) 5.3 Lymph # (Auto) 2.1 [place] # (Auto) 0.6 Eos # (Auto) 0.3 Baso # (Auto) 0.1 Absolute Nucleated RBC 0.00 Nucleated RBC % 0.0 Sodium 137 Potassium 3.7 Chloride 101 Carbon Dioxide 26 Anion Gap 10.0 BUN 19 Creatinine 0.7 Estimated GFR (MDRD) 113 Glucose 103 H Calcium 9.8 Total Bilirubin 0.9 AST 23 ALT 35 Alkaline Phosphatase 48 Troponin I High Sens 6.8 Total Protein 7.4 Albumin 4.2 Globulin 3.2 Albumin/Globulin Ratio 1.3 Lipase 32 PD MEDICAL DECISION MAKING - ED course Complexity details: reviewed results, re-evaluated patient, considered differential, d/w patient, d/w family ED course: The pt was asymptomatic in the ED, and BP was elevated, but not extremely so. His EKG and labs were unremarkable. We have discussed taking an extra 5 mg of amlodipine if he has another spike tomorrow, and the need to follow up with his PCP to discuss adjustments to his antihypertensive regimen if needed. We have also discussed the usual indications for return. Departure - Departure Disposition: Home, Self Care Clinical Impression: Hypertension Qualifiers: Hypertension type: primary hypertension Qualified Code(s): I10 - Essential (primary) hypertension Condition: Stable Instructions: ED HTN Established Comments: Your labs and EKG look good. Your blood pressure is quite a bit better here than what you measured at home, and most likely, your amlodipine has taken effect. You may take an extra dose of your amlodipine as long as you are only on 5 mg, but generally, the maximum dose for amlodipine is 10 mg/day. It is possible that this is just been a one-time event and will not happen again. However, if you continue to have recurrent episodes of elevated blood pressure and not feeling well, then you will need to talk to your doctor about having yo ur regimen changed, and also, possibly having a medication that is solely to be taken on an as-needed basis if your pressure shoots up. If you develop chest pain or shortness of breath along with an extremely elevated blood pressure, then please return to the emergency department. Discharge Date/Time: 08/31/22 19:19
== END 2022-08-31 19:19 | disposition home or self-care (01) ==
LOC: EDUNIT# → ED 17:42
DX: I10 Essential (primary) hypertension (principal)
CPT/HCPCS: 36415; 80053; 83690; 84484; 85025; 93005; 99283

== ENCOUNTER 2023-10-01 10:27 | Outpatient (CLI) | payer MEDICARE, OTHER ==
[2023-10-01 18:33] LABS: ALBUMIN 4.7 g/dL (3.2-5.5); ALBUMIN/GLOBULIN RATIO 1.6 (1.0-2.2); ALKALINE PHOSPHATASE 51 IU/L (42-121); ALT ALANINE AMINOTRANSFERASE 39 IU/L (10-60); AST ASPARTATE AMINOTRANSFERASE 24 IU/L (10-42); BILIRUBIN,TOTAL 0.6 mg/dL (0.2-1.0); BUN - BLOOD UREA NITROGEN 17 mg/dL (6-20); CALCIUM 10.1 mg/dL (8.5-10.3); CARBON DIOXIDE - CO2 30 mmol/L (21-32); CHLORIDE 103 mmol/L (101-111); CHOL/HDL RATIO 4.2 (<5.0); CHOLESTEROL 216 mg/dL; GFR - MDRD 74 (>89); GLUCOSE 113 mg/dL (74-104); HDL CHOLESTEROL 52 mg/dL; LDL CHOLESTEROL,CALCULATED 118 mg/dL; LDL/HDL RATIO 2.3 (<3.6); POTASSIUM 4.3 mmol/L (3.5-4.5); SODIUM 140 mmol/L (135-145); TOTAL PROTEIN 7.6 g/dL (6.4-8.9); TRIGLYCERIDES 232 mg/dL (48-352); VLDL CHOLESTEROL 46 mg/dL
== END 2023-10-01 10:28 | disposition home or self-care (01) ==
LOC: LAB.N 10:27
PROVIDERS: ATTEND Internal Medicine Cardiovascular Disease
DX: I10 Essential (primary) hypertension (principal); E78.2 Mixed hyperlipidemia
CPT/HCPCS: 36415; 80053; 80061; 83721; 83735; 84443

== ENCOUNTER 2024-04-24 10:01 | Outpatient (CLI) | payer MEDICARE, OTHER ==
[2024-04-24 12:14] LABS: BASOPHILS # (AUTO) 0.1 10^3/uL (0.0-0.1); EOSINOPHILS # (AUTO) 0.2 10^3/uL (0.0-0.7); EOSINOPHILS % (AUTO) 2.5 %; HCT - HEMATOCRIT 46.1 % (42.0-52.0); HGB - HEMOGLOBIN 15.4 g/dL (14.0-18.0); LYMPHOCYTES # (AUTO) 1.9 10^3/uL (1.5-3.5); LYMPHOCYTES % (AUTO) 24.7 %; MEAN CORPUSCULAR HEMOGLOBIN 29.2 pg (27.0-31.0); MEAN CORPUSCULAR HGB CONC 33.4 g/dL (32.0-36.0); MEAN CORPUSCULAR VOLUME 87.3 fL (80.0-94.0); MEAN PLATELET VOLUME 10.1 fL (7.4-11.4); MONOCYTES # (AUTO) 0.5 10^3/uL (0.0-1.0); MONOCYTES % (AUTO) 6.1 %; NEUTROPHILS % (AUTO) 65.3 %; PLT - PLATELET COUNT 205 10^3/uL (130-450); RED BLOOD COUNT 5.28 10^6/uL (4.70-6.10); RED CELL DISTRIBUTION WIDTH 12.9 % (12.0-15.0); WHITE BLOOD COUNT 7.7 x10^3/uL (4.8-10.8)
[2024-04-24 12:29] LABS: CALCIUM 10.3 mg/dL (8.5-10.3); POTASSIUM 4.2 mmol/L (3.5-4.5)
== END 2024-04-24 10:02 | disposition home or self-care (01) ==
LOC: LAB.N 10:01
PROVIDERS: ATTEND Internal Medicine Cardiovascular Disease
DX: I48.0 Paroxysmal atrial fibrillation (principal)
CPT/HCPCS: 36415; 80048; 85025